=== PATIENT | female | born 1945 | race African-American/Black ===

== ENCOUNTER → 2019-02-21 | Outpatient (CLI) | payer BC, MEDICARE ==
[~2019-02-21] MED LIST: ASPI-1073 PO; MULT-1146 PO; OLME20TA13 PO
== END | disposition home or self-care (01) ==
LOC: MAMMO 08:44
PROVIDERS: ATTEND Internal Medicine
DX: Z12.31 Encounter for screening mammogram for malignant neoplasm of breast (principal); R92.1 Mammographic calcification found on diagnostic imaging of breast
CPT/HCPCS: 77067